=== PATIENT | female | born 1970 | race African-American/Black ===

== ENCOUNTER 2016-09-06 20:19 | Emergency (ER) | payer OTHER, MEDICARE ==
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
[~2016-09-06 20:19] MED LIST: AMBIEN PO; AMLODIPINE BESY10 MG PO; ASPIRIN81 M2 PO; COREG6.25 MG PO; FLONASE ALLERG9.9 ML NS; HYDROCODONE/APA1 T16 PO; KEFLEX250 M3 PO; LEVEMIR SUBQ; LOSARTAN POTAS100 MG PO; MYCOPHENOLATE500 MG PO; PRENATAL1 TA1 PO; SIMVASTATIN10 MG PO; SODIUM BICARBO650 MG PO; VITAMIN D50000 UNIT PO
== END 2016-09-06 21:10 | disposition home or self-care (01) ==
LOC: CED 20:19
DX: S46.912A Strain of unspecified muscle, fascia and tendon at shoulder and upper arm level, left arm, initial encounter (principal); S20.212A Contusion of left front wall of thorax, initial encounter; I10 Essential (primary) hypertension; E10.9 Type 1 diabetes mellitus without complications; F17.200 Nicotine dependence, unspecified, uncomplicated; V49.60XA Unspecified car occupant injured in collision with unspecified motor vehicles in traffic accident, initial encounter
CPT/HCPCS: 71020; 99283